=== PATIENT | male | born 1970 | race Caucasian/White ===

== ENCOUNTER 2018-02-16 07:13 | Emergency (ER) | payer SELFPAY | END 2018-02-16 08:37 | disposition home or self-care (01) | LOC: MADERS 07:13 | DX: S90.822A Blister (nonthermal), left foot, initial encounter (principal); S90.821A Blister (nonthermal), right foot, initial encounter; F20.9 Schizophrenia, unspecified; F32.9 Major depressive disorder, single episode, unspecified; F17.210 Nicotine dependence, cigarettes, uncomplicated | CPT/HCPCS: 10060 ==

== ENCOUNTER 2018-02-19 01:52 | Emergency (ER) | payer SELFPAY ==
[2018-02-19] MEDS ORDERED: Cephalexin 500 MG CAP ONE (02:25)
== END 2018-02-19 02:30 | disposition home or self-care (01) ==
LOC: MADERS 01:52
DX: L03.113 Cellulitis of right upper limb (principal); F15.10 Other stimulant abuse, uncomplicated; F17.210 Nicotine dependence, cigarettes, uncomplicated; Z79.891 Long term (current) use of opiate analgesic
CPT/HCPCS: 99283

== ENCOUNTER 2022-02-03 02:43 | Emergency (ER) | payer SELFPAY ==
[2022-02-03] MEDS ORDERED: Ibuprofen 800 MG TAB ONE (03:42)
== END 2022-02-03 03:51 | disposition home or self-care (01) ==
LOC: MADERS 02:43
DX: M79.601 Pain in right arm (principal); R22.31 Localized swelling, mass and lump, right upper limb; L29.9 Pruritus, unspecified; F17.210 Nicotine dependence, cigarettes, uncomplicated
CPT/HCPCS: 99283